=== PATIENT | male | born 1950 | race Caucasian/White ===

== ENCOUNTER 2024-02-20 05:06 | Inpatient (IN) ==
[2024-02-15 15:26] LABS: Basophils # (Auto) 0.02 K/mcL (0.00-0.30); Basophils % (Auto) 0.3 % (0.0-2.0); Eosinophils % (Auto) 1.3 % (0.0-7.0); Hematocrit 45.1 % (40.1-51.0); Hemoglobin 15.4 g/dL (13.7-17.5); Lymphocytes # (Auto) 1.82 K/mcL (1.50-4.80); Lymphocytes % (Auto) 24.2 % (15.5-49.0); Mean Cell Volume 93.6 fL (80.0-100.0); Mean Corpuscular HGB Conc 34.1 g/dL (31.0-36.0); Mean Platelet Volume 8.8 fL (8.8-12.5); Monocytes # (Auto) 0.72 K/mcL (0.10-0.90); Monocytes % (Auto) 9.6 % (1.0-12.0); Neutrophils % (Auto) 64.5 % (38.0-78.0); Platelet Count 282 K/mcL (140-440); RBC 4.82 M/mcL (4.63-6.08); Red Cell Distribution Width 12.6 % (11.5-14.5); WBC 7.5 K/mcL (4.5-11.0)
[2024-02-15 15:31] LABS: Appearance,Urine Clear (Clear); Bilirubin,Urine Negative (Negative); Color,Urine Yellow; Culture Indicated,Urine No; Glucose,Urine (UA) Negative (Negative); Ketones,Urine Negative (Negative); Leukocyte Esterase,Urine Negative /uL (Negative); Nitrate,Urine Negative (Negative); PH,Urine 5.5 (5.0-9.0); Protein,Urine Negative (Negative); Specific Gravity,Urine >= 1.030 (1.000-1.035); Urine Blood Negative ery/mcL (Negative); Urobilinogen,Urine Normal
[2024-02-15 15:46] LABS: ALT/SGPT 63 U/L (<40); AST/SGOT 77 U/L (<40); Albumin 4.8 gm/dL (3.2-5.2); Albumin/Globulin Ratio 2.1 (1.0-2.3); Alkaline Phosphatase 39 U/L (39-117); Bilirubin,Total 0.5 mg/dL (0.1-1.0); Blood Urea Nitrogen 25 mg/dL (8-23); Calcium 10.2 mg/dL (8.6-10.4); Carbon Dioxide 25 mmol/L (22-30); Chloride 103 mmol/L (96-108); Globulin 2.3 gm/dL (2.2-3.7); Glomerular Filtration Rate 92; Glucose 105 mg/dL (70-105); Sodium 139 mmol/L (133-145)
[2024-02-15 18:48] LABS: Estimated Average Glucose(eAG) 117 mg/dL; Hemoglobin A1C 5.7 % Hgb (4.0-6.0)
[~2024-02-20 05:06] MED LIST: IPRATROPIUM/ALBUTEROL 3 ML AMPUL.NEB NEB PRN; SCOPOLAMINE 1 PATCH PATCH TOPICAL PRN
[2024-02-20] MEDS ORDERED: SUGAMMADEX SODIUM 200 MG/2 ML VIAL IV ONE ×2 (07:13→14:21)
[2024-02-20] MEDS ORDERED: fentaNYL 100 MCG/2 ML VIAL ONE (07:13)
[2024-02-20] MEDS ORDERED: ONDANSETRON 4 MG/2 ML VIAL ONE (07:13)
[2024-02-20] MEDS ORDERED: HYDROmorphone 1 MG/ML SYRINGE ONE ×3 (07:13→13:31)
[2024-02-20] MEDS ORDERED: PROPOFOL 200 MG/20 ML VIAL IV ONE ×2 (07:13→08:00)
[2024-02-20] MEDS ORDERED: ROCURONIUM 10 MG/ML ML IV ONE (07:13)
[2024-02-20] MEDS: ceFAZolin 2 GM in DEXTROSE 5% IN WATER 50 ML IV SCH (07:31)
[2024-02-20] MEDS ORDERED: TRANEXAMIC ACID 1,000 MG/10 ML VIAL ONE ×2 (07:52→13:31)
[2024-02-20] MEDS ORDERED: ePHEDrine 50 MG/ML AMPUL IV ONE (08:04)
[2024-02-20] MEDS ORDERED: NALOXONE HCL 0.4 MG/ML VIAL IV PRN ×2 (09:38→12:55)
[2024-02-20] MEDS ORDERED: ONDANSETRON 4 MG/2 ML VIAL IV PRN ×2 (09:38→12:55)
[2024-02-20] MEDS ORDERED: IPRATROPIUM/ALBUTEROL 3 ML AMPUL.NEB NEB PRN ×2 (09:38→12:55)
[2024-02-20] MEDS ORDERED: HYDROmorphone 0.5 MG/0.5 ML SYRINGE IV PRN (09:38)
[2024-02-20] MEDS: THROMBIN (BOVINE) 5,000 UNIT VIAL TOPICAL ONE (09:57)
[2024-02-20] MEDS: GELATIN SPONGE,ABSORBABLE 1 EACH SPONGE TOPICAL ONE (09:57)
[2024-02-20] MEDS ORDERED: PROMETHAZINE 25 MG/ML VIAL IM PRN (12:03)
[2024-02-20] MEDS ORDERED: BENZOCAINE/MENTHOL 1 LOZENGE PO PRN (12:03)
[2024-02-20] MEDS: BUPIVACAINE 0.25% 50 ML VIAL IJ ONE (12:20)
[2024-02-20] MEDS: fentaNYL 100 MCG/2 ML VIAL IV PRN ×2 (12:40→13:10)
[2024-02-20] MEDS: HYDROmorphone 0.5 MG/0.5 ML SYRINGE IV PRN (13:02)
[2024-02-20] MEDS: 0.9 % SODIUM CHLORIDE 250 ML IV SCH (13:42)
[2024-02-20] MEDS: morphine 4 MG/ML VIAL IV PRN (13:46)
[2024-02-20] MEDS: METHOCARBAMOL 750 MG TABLET PO PRN (13:46)
[2024-02-20] MEDS: LACTATED RINGERS 1,000 ML IV SCH ×2 (13:49→14:17)
[2024-02-20] MEDS: DEXTROSE 5%-1/2NS 1,000 ML IV SCH (13:50)
[2024-02-20] MEDS: 0.9 % SODIUM CHLORIDE 10 ML SYRINGE IV SCH (13:51)
[2024-02-20] MEDS: HYDROCODONE/APAP 7.5/325MG TABLET PO PRN (14:02)
[2024-02-20] MEDS: ceFAZolin 1 GM VIAL IV SCH (15:29)
[2024-02-20] MEDS: ONDANSETRON 4 MG/2 ML VIAL IV PRN (19:55)
[2024-02-20] MEDS: SENNOSIDES 1 TABLET PO SCH (20:49)
[2024-02-20] MEDS: DOCUSATE SODIUM 100 MG CAPSULE PO SCH (20:49)
[2024-02-20] MEDS: LOSARTAN 25 MG TABLET PO SCH (20:49)
[2024-02-20] MEDS: ZOLPIDEM 5 MG TABLET PO PRN (20:49)
[2024-02-21 06:03] LABS: Hematocrit 40.5 % (40.1-51.0); Hemoglobin 13.4 g/dL (13.7-17.5)
[2024-02-21 06:28] LABS: Blood Urea Nitrogen 9 mg/dL (8-23); Calcium 8.9 mg/dL (8.6-10.4); Carbon Dioxide 25 mmol/L (22-30); Chloride 99 mmol/L (96-108); Glomerular Filtration Rate 92; Glucose 118 mg/dL (70-105); Potassium 3.7 mmol/L (3.3-5.1); Sodium 136 mmol/L (133-145)
[2024-02-21] MEDS: OMEPRAZOLE 20 MG CAPSULE PO SCH (08:05)
[2024-02-21] MEDS: ONDANSETRON 4 MG ODT TABLET SL PRN (18:38)
[2024-02-22 06:41] LABS: Hematocrit 41.3 % (40.1-51.0); Hemoglobin 13.7 g/dL (13.7-17.5)
[2024-02-22] MEDS: PANTOPRAZOLE 40 MG VIAL IV SCH (07:42)
[2024-02-23 06:46] LABS: Hematocrit 38.5 % (40.1-51.0); Hemoglobin 12.8 g/dL (13.7-17.5)
== END 2024-02-23 11:45 | disposition home or self-care (01) | DRG 454 ==
LOC: MEDSUR 05:06
PROVIDERS: ADMIT Orthopaedic Surgery Orthopaedic Surgery of the Spine; ATTEND Orthopaedic Surgery Orthopaedic Surgery of the Spine